=== PATIENT | male | born 1955 | race Caucasian/White ===

== ENCOUNTER 2017-01-22 08:29 | Day surgery (SDC) | payer OTHER ==
[2017-01-21 17:14] VITALS: BMI 30.7
[2017-01-22] MEDS ORDERED: PROPOFOL 20 ML ONE ×2 (09:10)
[2017-01-22 09:46] VITALS: TEMP 98.2
[2017-01-22 10:14] VITALS: BP 120/70; PULSE 72
== END 2017-01-22 10:15 | disposition home or self-care (01) ==
LOC: FASU-ENDO 08:29
PROVIDERS: ATTEND Internal Medicine Gastroenterology
PROC: 0DJD8ZZ Inspection of Lower Intestinal Tract, Via Natural or Artificial Opening Endoscopic (ICD-10-PCS; principal; 2017-01-22 09:12)
DX: K59.00 Constipation, unspecified (principal); K57.30 Diverticulosis of large intestine without perforation or abscess without bleeding